=== PATIENT | female | born 1965 ===

== ENCOUNTER 2017-03-18 23:19 | Emergency (ER) | payer OTHER ==
[~2017-03-18] VITALS: Ht 162.6 cm; Wt 95.0 kg
[2017-03-19] MEDS ORDERED: ACETAMINOPHEN 500 MG TABLET ONE (01:16)
[2017-03-19 01:24] VITALS: BP 125/84
[2017-03-19] MEDS ORDERED: ACETAMINOPHEN 325 MG TABLET PO ONE (01:30)
[2017-03-19] MEDS ORDERED: OSELTAMIVIR 75 MG CAPSULE PO ONE (01:30)
== END 2017-03-19 01:42 | disposition home or self-care (01) ==
LOC: ED 03-19 01:12
DX: B34.9 Viral infection, unspecified (principal); E11.9 Type 2 diabetes mellitus without complications
CPT/HCPCS: 93005; 99283